=== PATIENT | female | born 1960 | race Caucasian/White ===

== ENCOUNTER 2020-12-11 14:38 | Emergency (ER) | payer OTHER ==
[~2020-12-11 14:38] MED LIST: NEXIUM 24HR20 M1 PO
[2020-12-11 15:24] LABS: BASOPHIL 0.3 % (0-2); EOSINOPHIL 0 % (0-5); HCT 43.2 % (37.0-47.0); HGB 14.8 g/dl (12.5-16.0); LYMPHOCYTE 14.2 % (15-48); MCH 29.2 pg (25.0-31.0); MCHC 34.3 g/dL (32.0-36.0); MCV 85.2 fL (78.0-100.0); MONOCYTE 2.1 % (0-12); MPV 9.8 fL (6.0-9.5); NEUTROPHIL 82.9 % (41-80); NRBC 0; PLT 297 K/uL (150-400); RBC 5.07 M/uL (4.20-5.40); RDW 13.2 % (11.5-14.0)
[2020-12-11 15:29] LABS: ALBUMIN 4.5 g/dL (3.4-5.0); BILIRUBIN - TOTAL 0.8 mg/dL (0.2-1.0); BUN/CREAT RATIO (CALC) 28.6 RATIO; CREATININE 0.56 mg/dL (0.51-0.95); GLOBULIN (CALCULATION) 4.3 g/dL; INR 1.03 (0.9-1.2); MAGNESIUM 1.7 mg/dL (1.8-2.4); POTASSIUM 3.9 mmol/L (3.5-5.1); PROTHROMBIN TIME 12.8 SECONDS (11.4-13.6); PTT 24.1 SECONDS (22.2-34.7); TOTAL PROTEIN 8.8 g/dL (6.4-8.2)
[2020-12-11 15:30] LABS: D-DIMER 0.9 ug/mLFEU (0.00-0.41)
[2020-12-11 15:40] LABS: PRO-BNP 64 pg/mL (<125)
[2020-12-11 16:56] LABS: BILIRUBIN NEGATIVE (NEGATIVE); BLOOD TRACE-INTACT Ery/uL (NEGATIVE); CLARITY CLEAR (CLEAR); COLOR YELLOW (YELLOW); GLUCOSE (U) 3+ mg/dL (NORMAL); LEUKOCYTES NEGATIVE Leu/uL (NEGATIVE); NITRITE NEGATIVE (NEGATIVE); PROTEIN 2+ mg/dL (NEGATIVE); SPECIFIC GRAVITY 1.025 (1.001-1.030); UROBILINOGEN 0.2 mg/dL (0.2-1.0)
[2020-12-11 17:04] LABS: BACTERIA TRACE; URINARY RBC RARE
== END 2020-12-11 19:30 | disposition other institution (70) ==
LOC: FER 14:38
PROVIDERS: Emergency Medicine
DX: I63.9 Cerebral infarction, unspecified (principal); I69.334 Monoplegia of upper limb following cerebral infarction affecting left non-dominant side; R10.9 Unspecified abdominal pain; Z20.822 Contact with and (suspected) exposure to COVID-19; Z88.5 Allergy status to narcotic agent
CPT/HCPCS: 36415; 70450; 71045; 71250; 80053; 81001; 83605; 83690; 83735; 83880; 84145; 84484; 85025; 85379; 85610; 85730; 93005; J1170; J2405; U0002

== ENCOUNTER 2021-08-28 11:59 | Emergency (ER) | payer OTHER ==
[2021-08-28 14:47] LABS: CORONAVIRUS 2019 SARS-COV-2 NEGATIVE (NEGATIVE); INFLUENZA A NAA NEGATIVE (NEGATIVE)
[2021-08-28] MEDS ORDERED: ZOFRAN4 M1 PO (16:02)
== END 2021-08-28 16:17 | disposition home or self-care (01) ==
LOC: FER 11:59
PROVIDERS: Emergency Medicine
DX: B34.9 Viral infection, unspecified (principal); E11.9 Type 2 diabetes mellitus without complications; I10 Essential (primary) hypertension; Z20.822 Contact with and (suspected) exposure to COVID-19; Z88.5 Allergy status to narcotic agent
CPT/HCPCS: 99284; U0002